=== PATIENT | female | born 1960 | race Caucasian/White ===

== ENCOUNTER → 2017-08-03 | Outpatient (CLI) | payer BC ==
[~2017-08-03] MED LIST: ATOR10 PO
== END | disposition home or self-care (01) ==
LOC: PLD 13:39 → LAB SHORT 13:39
DX: L57.8 Other skin changes due to chronic exposure to nonionizing radiation (principal); L30.8 Other specified dermatitis; R23.4 Changes in skin texture; L98.9 Disorder of the skin and subcutaneous tissue, unspecified
CPT/HCPCS: 88305

== ENCOUNTER 2019-01-30 09:40 | Emergency (ER) | payer BC ==
[~2019-01-30] VITALS: Ht 160 cm; Wt 113.4 kg
[2019-01-30] MEDS ORDERED: Robaxin-750750 MG PO (14:58)
[2019-01-30] MEDS ORDERED: Prednisone20 MG PO (14:58)
[2019-01-30] MEDS ORDERED: Percocet 5-3251 EACH PO (14:58)
== END 2019-01-30 15:14 | disposition home or self-care (01) ==
LOC: ER 09:40
DX: M54.41 Lumbago with sciatica, right side (principal); Z88.2 Allergy status to sulfonamides; Z91.040 Latex allergy status; Z79.899 Other long term (current) drug therapy
CPT/HCPCS: 72100; 73502; 99283-25; A9270-GY; J7512

== ENCOUNTER → 2020-12-12 | Outpatient (CLI) | payer BC ==
[~2020-12-12] MED LIST changes: +Percocet 5-3251 EACH PO; +Prednisone20 MG PO; +Robaxin-750750 MG PO
[2020-12-13 16:11] LABS: HPV 16 Negative (Negative); HPV 18 Negative (Negative); HPV OTHER HR TYPES Negative (Negative)
== END | disposition home or self-care (01) ==
LOC: LAB 14:07 → LAB SHORT 14:07
PROVIDERS: Obstetrics & Gynecology
DX: Z12.4 Encounter for screening for malignant neoplasm of cervix (principal)
CPT/HCPCS: 87624; G0123

== ENCOUNTER 2022-12-16 20:30 | Emergency (ER) | payer BC ==
[~2022-12-16] VITALS: Ht 160 cm; Wt 88.0 kg
[~2022-12-16 20:30] MED LIST changes: +BETAMETHASONE TOP; +BIOTIN PO; +CALCIUM PO; +ESTRADIOL-NORE1 EAC1 PO; +GABA300 PO; +MAGNESIUM OXID500 MG PO; +Robaxin750 MG PO; +VITAMIN D325 MC3 PO; +ZINC PO
[2022-12-16 21:01] VITALS: BP 123/81
[2022-12-16] MEDS ORDERED: NEURONTIN300 MG PO (21:37)
== END 2022-12-16 22:28 | disposition home or self-care (01) ==
LOC: ER 20:30
DX: M25.532 Pain in left wrist (principal); Z79.899 Other long term (current) drug therapy; Z88.2 Allergy status to sulfonamides; Z91.040 Latex allergy status
CPT/HCPCS: 29125; 73110; 99283-25

== ENCOUNTER → 2025-05-11 | Outpatient (CLI) | payer BC ==
[~2025-05-11] MED LIST changes: +NEURONTIN300 MG PO
[2025-05-12 07:49] LABS: Campylobacter Sp Not Detected (NOT DETECT)
[2025-05-12 07:50] LABS: E. Coli O157 Not Detected (NOT DETECT); Enteroaggregative E. coli-EAEC Not Detected (NOT DETECT); Enteropathogenic E. coli-EPEC Not Detected (NOT DETECT); Enterotoxigenic E. coli-ETEC Not Detected (NOT DETECT); Salmonella Sp Not Detected (NOT DETECT); Shiga Toxin-prod E. coli-STEC Not Detected (NOT DETECT); Shigella/Enteroin E. coli-EIEC Not Detected (NOT DETECT); Vibrio Sp Not Detected (NOT DETECT)
== END ==
LOC: LAB SHORT 07:50 → LAB 07:50
PROVIDERS: Internal Medicine Gastroenterology
DX: R19.7 Diarrhea, unspecified (principal)
CPT/HCPCS: 87507

== ENCOUNTER 2025-05-25 09:02 | Day surgery (SDC) | payer BC ==
[2025-05-25] VITALS (12 sets, daily range): BP systolic 96–126; BP diastolic 60–107
[~2025-05-25] VITALS: Ht 160 cm; Wt 94.8 kg
[~2025-05-25 09:02] MED LIST changes: +FINA5 PO
--- NOTE | 2025-05-25 09:37 | NUR ---
Ambulatory in Day Surgery. Lungs clear T/O to Auscultation. Patient confirms NPO status and agrees with scheduled surgery. History, Chart, Medications and Allergies reviewed before start of procedure. Pre-Op teaching done. Pt verbalizes understanding. Patient States Post-Procedure ride home has been arranged.
--- NOTE | 2025-05-25 09:55 | NUR ---
05/25/25 0955 Gladys Castellanos CONFIRMED AND REVIEWED H&P, MEDCICATIONS, ALLERGIES, MEDICAL HISTORY, RESPIRATORY HISTORY, VITAL SIGNS, 3-LEAD EKG, CONSENTS, AND PHYSICIAN ORDERS. PATIENT CONFIRMS NPO STATUS AND AGREES WITH SCHEDULED PROCEDURE. MONITOR INTACT WITH CONTINUOUS PULSE OXIMETRY, CAPNOGRAPHY, 3-LEAD EKG, INTERMITTENT BP. SUPPLEMENTAL O2 TO BE TITRATED THROUGHOUT PROCEDURE TO MAINTAIN O2 SATURATION ABOVE 90%. PATIENT DETERMINED TO BE ASA APPROPRIATE FOR PROPOFOL SEDATION PRIOR TO START OF PROCEDURE BY .MALLAMPATI CLASS 3 AIRWAY: VISUALIZATION OF ONLY THE BASE OF THE UVULA.
--- NOTE | 2025-05-25 10:46 | NUR ---
Discharge instructions reviewed with patient. Patient verbalizes understanding. Copy given to patient to take home. Patient States Post-Procedure ride home has been arranged. Discharged via wheelchair to private car for ride home.
== END 2025-05-25 10:46 | disposition home or self-care (01) ==
LOC: ORSCMMR 09:02 → ORD 10:00 → ORSCMMR 10:00
PROVIDERS: Internal Medicine Gastroenterology
PROC: 0DBK8ZX Excision of Ascending Colon, Via Natural or Artificial Opening Endoscopic, Diagnostic (ICD-10-PCS; principal; 2025-05-25 10:00)
PROC: 0DBB8ZX Excision of Ileum, Via Natural or Artificial Opening Endoscopic, Diagnostic (ICD-10-PCS; principal; 2025-05-25 10:00)
PROC: 0DBN8ZX Excision of Sigmoid Colon, Via Natural or Artificial Opening Endoscopic, Diagnostic (ICD-10-PCS; principal; 2025-05-25 10:00)
PROC: 0DBL8ZX Excision of Transverse Colon, Via Natural or Artificial Opening Endoscopic, Diagnostic (ICD-10-PCS; principal; 2025-05-25 10:00)
DX: R19.7 Diarrhea, unspecified (principal); K63.5 Polyp of colon; K64.8 Other hemorrhoids; Z86.0101 Personal history of adenomatous and serrated colon polyps; E78.00 Pure hypercholesterolemia, unspecified; Z79.899 Other long term (current) drug therapy
CPT/HCPCS: 88305; J2704; J7120